=== PATIENT | male | born 1965 | race Two or more races ===

== ENCOUNTER 2024-11-01 21:03 | Emergency (ER) | payer MEDICAID, SELFPAY ==
[2024-11-01 21:51] VITALS: BP 159/99; PULSE 83; RESP 18; TEMP 36.6; O2SAT 99
--- NOTE | 2024-11-01 21:54 | XR_ITS ---
Examination: CT abdomen with intravenous contrast CT pelvis with intravenous contrast 2-D coronal reconstructions 2-D sagittal reconstructions Date and time of exam:November 02, 2024 0108 hours INDICATIONS: Abdominal pain constipation no bowel movement 10 days, with nausea vomiting. CTDI: vol (mGy) 11.3 DLP: (mGycm) 713 Technique: Multiple axial sections of the abdomen and pelvis have been obtained. 64 slice high-resolution scanner used. 3 mm axial sections have been obtained, post intravenous injection 60 cc [id number] 2-D sagittal, coronal reconstructions obtained. Low dose protocols were performed. One or more of the following dose reduction techniques were used; automated exposure control, adjustment of the mA and/or KV according to patient size, use of iterative reconstruction technique. Findings: Moderate vascular congestion No focal liver or splenic lesion No gallstones No pancreatic mass No hydronephrosis Fluid distended colon and small bowel loops Aorta normal size No pericecal inflammatory change, normal appendix Urinary bladder intact Large amounts of stool in the colon with thickening of the rectal wall Prominent osteopenia IMPRESSION: Large amounts of stool in the colon with probable proctitis pattern Colonic and small bowel ileus without definite obstruction, clinical correlation and follow-up suggested
--- NOTE | 2024-11-01 21:55 | PD.EDRME ---
Rapid Medical Screening Exam RME Arrival date/time: 11/01/24 21:03 Chief Complaint: Abdominal Pain Time Seen by Provider: 11/01/24 21:13 Vital signs: Vital Signs Temperature 98 F 11/01/24 21:51 Pulse Rate 83 11/01/24 21:51 Respiratory Rate 18 11/01/24 21:51 Blood Pressure 159/99 H 11/01/24 21:51 Pulse Oximetry (%) 99 11/01/24 21:51 Oxygen Delivery Method Room Air 11/01/24 21:51 E Narrative: c/o generalized abdominal pain, n/v x1 today. No BM x10 days
[2024-11-01 22:14] LABS: Basophils % (Auto) 0 % (0-2.5); Eosinophils # (Auto) 0.2 Thou/mm3 (0.0-0.5); Eosinophils % (Auto) 4 % (0-10); Hematocrit 46.9 % (41.0-53.0); Hemoglobin 15.6 g/dL (13.5-16.0); Immature Granulocytes % (Auto) 1 % (0-0); Immature Granulocytes Auto 0.03 Thou/mm3 (0.00-0.00); Lymphocytes # (Auto) 1.8 Thou/mm3 (1.0-4.8); Lymphocytes % (Auto) 39 % (10-50); Mean Corpuscular HGB Conc 33.3 g/dl (31.0-37.0); Mean Corpuscular Volume 84 fL (80-100); Monocytes # (Auto) 0.6 Thou/mm3 (0.0-0.8); Monocytes % (Auto) 14 % (0-12); Neutrophils % (Auto) 42 % (37-80); Nucleated Red Blood Cell % 0 /100 WBC (0); Platelet Count 202 Thou/mm3 (140-440); RDW Standard Deviation 41.6 fL (35.1-43.9); Red Blood Count 5.58 Miln/mm3 (4.50-5.90); White Blood Count 4.7 Thou/mm3 (3.8-10.6)
[2024-11-01 22:30] LABS: Alanine Aminotransferase 53 U/L (10-49); Albumin, Serum 5.1 gm/dL (3.5-5.0); Albumin/Globulin Ratio 1.6 (1.2-2.2); Alkaline Phosphatase 95 U/L (46-116); Anion Gap 6 (7-16); Aspartate Amino Transferase 68 U/L (0-34); BUN/Creatinine Ratio 4 Ratio (12-20); Bilirubin,Total 0.3 mg/dL (0.3-1.2); Blood Urea Nitrogen < 5 mg/dL (9-23); Calcium 10.1 mg/dL (8.3-10.6); Calcium (Corrected) 10.1 mg/dL (8.5-10.1); Carbon Dioxide 29.8 mMol/L (20.0-31.0); Chloride 103 mMol/L (98-107); Creatinine (Component) 1.2 mg/dL (0.6-1.3); Globulin 3.1 gm/dL (2.3-3.5); Glucose 104 mg/dL (74-106); Lipase 25 U/L (12-53); Osmolality,Calculated 274 (275-295); Potassium 4.8 mMol/L (3.4-5.1); Sodium 139 mMol/L (136-145); Total Protein 8.2 gm/dL (5.7-8.2); eGFR > 60 See Note
[2024-11-01] MEDS: ACETAMINOPHEN 500 MG TABLET 1000 MG PO (23:38)
--- NOTE | 2024-11-02 02:24 | PD.EDABDPN ---
ED Abdominal Pain RME/HPI General Chief Complaint: Abdominal Pain Stated complaint: ABD PAIN, NO BM X 10 DAYS Time seen by provider: 11/01/24 21:13 Arrival date/time: 11/01/24 21:03 RME / HPI RME / HPI narrative: c/o generalized abdominal pain, n/v x1 today. No BM x10 days ----- Dr. Bennett?s Main ED Evaluation: 59yo male with pmhx HTN, asthma presents to the ED for a chief complaint of constipation x 6 days. Patient states he has a history of constipation and has an unknown medication prescribed, but states it has not been working. He reports associated severe abdominal pain that is now mild, nausea, vomiting, and a fever. He also notes he is unable to urinate. He denies any other associated symptoms. No known allergies. Related Data Previous Rx's ?Medication ?Instructions ?Recorded pseudoephedrine HCl 30 mg tablet 30 mg PO Q6H PRN nasal congestion 04/12/19 (Sudafed) #30 tabs magnesium citrate 300 ml PO QDAY PRN constipation 11/02/24 #296 mL sodium phosphates 19 gram-7 197 ml DE TID 3 days #2,070 mL 11/02/24 gram/197 mL enema (Fleet Enema Extra) Allergies Allergy/AdvReac Type Severity Reaction Status Date / Time No Known Allergies Allergy Verified 04/12/19 17:58 Review of Systems Review of Systems Systems Reviewed: All systems reviewed, normal except as documented Past Medical History Past Medical History CARDIAC: Negative Cardiac Disorders or Congestive Heart Failure RESPIRATORY: Positive Asthma; Negative Chronic Obstructive Pulmonary Disease (COPD) GENITOURINARY: Negative Renal Disease ENDOCRINE: Negative Diabetes Mellitus Type 1 or Diabetes Mellitus Type 2 HEMATOLOGIC: Negative Sickle Cell Disease Social History SMOKING STATUS: Never smoker ED Exam Narrative Physical exam: GENERAL APPEARANCE: alert and oriented x 4, well-developed, well-nourished, no acute distress VITALS: All vitals were reviewed and the pulse ox is 99% on room air, which is normal according to my interpretation. HEENT: Normocephalic, atraumatic; pupils equal, round, reactive to light; EOMI; mucous membranes pink, moist; oropharynx clear NECK: Supple LUNGS: CTABL; no wheezes, no rales, no rhonchi HEART: Regular rate, regular rhythm; normal S1, S2; no murmurs ABDOMEN: non distended; normal BS; soft, no tenderness, no guarding, no rebound; no masses, no organomegaly, no hernia BACK: no CVA tenderness EXTREMITIES: atraumatic; no edema NEUROLOGIC: awake; alert and oriented x4; cranial nerves II-XII grossly intact; no focal sensory or motor deficits PSYCHIATRIC: appropriate mood and affect SKIN: warm, dry, normal color; no rashes Course Course Course Narrative: Patient was offered to be manually disimpacted here in the ED, but patient declined, stating he'd rather be given medications to take at home. Patient given return precautions if he had any worsening symptoms or no improvement. Patient verbalized understanding and is stable to be discharged home. Quality Measures none Orders Category Date Time Status CT Screening NOW Care 11/01/24 21:55 Completed Miscellaneous Nursing Order NOW Care 11/02/24 02:[address] abdomen pelvis w con Stat Exams 11/01/24 21:54 Taken CBC Stat Lab 11/01/24 22:05 Completed CMP [Comprehensive Metabolic Panel] Stat Lab 11/01/24 22:05 Completed Lipase Stat Lab 11/01/24 22:05 Completed Urinalysis Routine Lab 11/01/24 22:36 Ordered Acetaminophen Tab [Tylenol ES Tab] Med 11/01/24 23:27 Discontinued 1,000 mg PO X1 ONE Sodium Chloride 0.9% 1000 ml [Ns] 1,000 ml Med 11/02/24 02:29 Discontinued IV 999 mls/hr Vital Signs Vital signs: Vital Signs Temperature 98 F 11/01/24 21:51 Pulse Rate 83 11/01/24 21:51 Respiratory Rate 18 11/01/24 21:51 Blood Pressure 159/99 H 11/01/24 21:51 Pulse Oximetry (%) 99 11/01/24 21:51 Oxygen Delivery Method Room Air 11/01/24 21:51 Abdominal Pain MDM MDM Narrative MDM Narrative:: Scribe Attestation: 11/02/24 Jessica Pineda am scribing for and in the presence of Dr. Bennett. Patient data External records reviewed:: [facility] previous records (Per chart review, patient has no relevant previous ED visits or admissions to this facility.) Clinical information provided by:: patient Social determinants that could affect healthcare access:: none Patient has the following chronic illnesses:: HTN, asthma How is presenting disease/condition affected by chronic disease/condition?: uneffected by Evaluation data The following diagnostics were reviewed and interpreted by me:: lab results and radiology exam(s) Lab and/or radiology exams considered but not ordered:: none Interpretation Summary: CBC is normal, AST and ALT are slightly elevated, Lipase is normal, according to my interpretation. ---- [facility] Preliminary Report Draft Patient: SHREYA VELÁZQUEZ. Record#: [id number] Birthdate: 1965 Age/Sex: 59 / M Location: [facility] Attending Dr: Ordering Physician: Date of Service: Procedure(s): Accession Number(s): cc: ~ CT scan of the abdomen and pelvis with intravenous contrast (axial sections with sagittal and coronal reformats). November 02, 2024 at 0104 hours Clinical History: Generalized abdominal pain, nausea and vomiting. Comparison: No prior study is available for comparison. Findings: Bibasilar atelectasis is seen. The liver, gallbladder, pancreas, spleen, kidneys and adrenals are unremarkable. Abundant fecal material is seen in the dilated rectosigmoid colon with rectal wall thickening and perirectal fat stranding. Fluid filled small bowel loops are seen in the lower abdomen without obstruction. Small air-fluid levels are also seen in the colon. The appendix is within normal limits (axial image 147/303). There is no mesenteric or retroperitoneal adenopathy. The urinary bladder is unremarkable. There is no free fluid or free air. Degenerative changes are identified in the spine. Impression: 1. Findings suggestive of fecal impaction in the rectum with proctitis. 2. Fluid filled small and large bowel without obstruction or wall thickening. This may be seen in the clinical setting of gastroenteritis/diarrhea and/or secondary to fecal impaction. Recommend clinical correlation. 3. Other findings as described above. Report Electronically Signed By: Meredith Munoz 11/02/2024 2:40:18 AM [EST] Medications / Prescriptions Medications or Prescriptions considered but not ordered:: none Medication administrations:: Medication Administration History Discontinued Medications Acetaminophen (Acetaminophen 500 Mg Tablet) 1,000 mg PO X1 ONE Stop: 11/01/24 23:28 Last Admin: 11/01/24 23:38 Dose: 1,000 mg Documented By: OA Sodium Chloride (Ns) 1,000 mls @ 999 mls/hr IV .Q1H1M ONE Stop: 11/02/24 03:29 Last Infusion: 11/02/24 03:44 Dose: Infused Documented By: Admin: 11/02/24 02:49 Dose: 999 mls/hr Documented By: CVL see above Consultations Consultation(s) initiated? (list below): No Diagnosis Differential diagnosis abdominal pain: constipation, small bowel obstruction and other (fecal impaction) Most likely diagnosis given after review of the tests above:: constipation Admission Indicated Admission indicated?: not indicated Admission Request Was there a request for admission?: No Disposition Plan Disposition Plan: Discharge Discharge Attestation Discharge Attestation: The patient and all family members were given an opportunity to ask questions and understood the discharge instructions. Discharge instructions specifically effects, indications for sooner follow up or return to the emergency department, and the expected course of current diagnosis. Patient condition: Stable Discharge Plan Plan Patient Disposition: HOME (Self Care) Disposition Comment: Stable for discharge Patient condition on transfer: Stable Prescriptions/Referrals Prescriptions/Med Rec: New magnesium citrate Solution 300 ml PO QDAY PRN (Reason: constipation) Qty: 296 0RF Fleet Enema Extra 19-7 gram/197 mL enema 197 ml DE TID 3 Days Qty: 2070 0RF Rx Instructions: Please dispense 9 enemas. Patient to use 1 enema 3 times daily for 3 days or until he has a bowel movement No Action pseudoephedrine HCl [Sudafed] 30 mg tablet 30 mg PO Q6H PRN (Reason: nasal congestion) Qty: 30 0RF Referrals: Effie San MD [Primary Care Provider] - In 1 week Problem List Clinical Impression: Constipation Patient/Caregiver Discharge Instructions Discharge Activity: activity as tolerated Diet Instructions: You should drink only liquids until you have a good bowel movement Education Materials: Treating Constipation, Eating a High-Fiber Diet, ED Constipation (Adult) Additional Instructions: It is really important that you return to the emergency department if you develop any severe abdominal pain or repeated episodes of vomiting. 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 Please use these medications as directed until you have a normal sized bowel movement. Please follow-up with your primary care doctor within the next several days If these medicines do not work and you do not have a bowel movement please come back to the emergency department right away Print Language: Peruvian Stand Alone Forms: [employer] Award Info., Patient Portal Info Letter
[2024-11-02 02:29] VITALS: BP 178/106; PULSE 98; RESP 20; TEMP 36.9; O2SAT 96
--- NOTE | 2024-11-02 02:40 | PRELIM_ITS ---
CT scan of the abdomen and pelvis with intravenous contrast (axial sections with sagittal and coronal reformats). November 02, 2024 at 0104 hoursClinical History: Generalized abdominal pain, nausea and v omiting.Comparison: No prior study is available for comparison.Findings:Bibasilar atelectasis is seen .The liver, gallbladder, pancreas, spleen, kidneys and adrenals are unremarkable.Abundant fecal mater ial is seen in the dilated rectosigmoid colon with rectal wall thickening and perirectal fat strandin g. Fluid filled small bowel loops are seen in the lower abdomen without obstruction. Small air-fluid levels are also seen in the colon. The appendix is within normal limits (axial image 147/303). There is no mesenteric or retroperitoneal adenopathy.The urinary bladder is unremarkable. There is no free fluid or free air.Degenerative changes are identified in the spine.Impression:1. Findings suggestive of fecal impaction in the rectum with proctitis.2. Fluid filled small and large bowel without obstruc tion or wall thickening. This may be seen in the clinical setting of gastroenteritis/diarrhea and/or secondary to fecal impaction. Recommend clinical correlation.3. Other findings as described above. Re port Electronically Signed By: Meredith Munoz 11/02/2024 2:40:18 AM [EST]
[2024-11-02] MEDS: SODIUM CHLORIDE 0.9% 1000 ML 1,000 ML 999 ML IV (02:49)
[2024-11-02 03:44] VITALS: RESP 18
== END 2024-11-02 03:45 | disposition home or self-care (01) ==
PROVIDERS: Physician Assistant; Emergency Provider Emergency Medicine; PCP Internal Medicine
DX: K59.00 Constipation, unspecified (principal); I10 Essential (primary) hypertension; J45.909 Unspecified asthma, uncomplicated
CPT/HCPCS: 36415; 74177; 80053; 81001; 83690; 85025; 96360; 99285; A4649; J7030; Q9967; A9270